=== PATIENT | female | born 1940 | race African-American/Black ===

== ENCOUNTER 2018-05-07 15:16 | Observation (INO) | payer BC ==
--- NOTE | 2018-05-07 15:29 | PDOC ---
History of Present Illness - General Stated Complaint: FALL Time Seen by Provider: 05/07/18 15:29 Past History - Past Medical History Allergies/Adverse Reactions: Allergies Allergy/AdvReac Type Severity Reaction Status Date / Time Fish Containing Products Allergy Intermediate ITCH COUGH Verified 06/22/13 08:27 Home Medications: Ambulatory Orders Albuterol 0.083% Nebulizer Oralia [Ventolin 0.083% Nebulizer Soln -] 1 neb NEB PRN PRN 06/21/13 Albuterol Sulfate Inhaler - [Ventolin HFA Inhaler -] 1 inh IN PRN PRN 06/21/13 Budesonide/Formeterol Fumarate [SYMBICORT 160/4.5mcg -] 2 inh IN BID 06/21/13 Cholecalciferol (Vitamin D3) [Vitamin D] 1,000 mg PO DAILY 06/21/13 Cyanocobalamin Vit B-12 Inj. [Vitamin B12 Injection -] 1,000 mcg IM MONTHLY Gabapentin 300 mg PO PRN PRN 06/21/13 Simvastatin [Zocor -] 20 mg PO DAILY 06/21/13 Tiotropium [place] [Spiriva] 18 mcg IN DAILY 06/21/13 Hydrocodone Bit/Acetaminophen [Lortab 10-500] 1 tab PO TID PRN #20 tablet Anemia: No Asthma: Yes Cancer: No Cardiac Disorders: Yes CVA: No COPD: Yes CHF: Yes Dementia: No Diabetes: Yes (BORDERLINE) GI Disorders: No Disorders: No HTN: No Hypercholesterolemia: Yes Liver Disease: No Seizures: No Thyroid Disease: No - Surgical History Abdominal Surgery: No Appendectomy: No Cardiac Surgery: No Cholecystectomy: No Lung Surgery: No Neurologic Surgery: No Orthopedic Surgery: Yes (FOOT SX LEFT) - Suicide/Smoking/Psychosocial Hx Smoking History: Never smoked Have you smoked in the past 12 months: No Hx Alcohol Use: No Drug/Substance Use Hx: No Substance Use Type: None Hx Substance Use Treatment: No
--- NOTE | 2018-05-07 16:03 | PDOC ---
History of Present Illness - General Chief Complaint: Syncope/Near Syncope Stated Complaint: FALL Time Seen by Provider: 05/07/18 15:29 - History of Present Illness Initial Comments: 05/07/18 16:56 Patient is a 78 year old female with past medical history of HTN, HLD, DM and COPD, BIBEMS after a witnessed fall. Patient reported she was preparing some food in the kitchen, when she suddenly felt dizzy, with the room spinning around her and subsequently fell forward, hitting her head. As per grandson, patient fell forward, hitting the trash cans and had a few moments of unconsciousness, but could not say how long she passed out. Patient remembered waking up, feeling weak, and still on the floor, asking her grandson to get the phone. Patient trying to call 911 but could not seem to get them on the line. She tried to call her son, but could not seem to remember her son's name initially. When she finally did, she told her son what happened and EMS was called. Patient denies headache, fever, chills, nausea, vomiting, chest pain, SOB, palpitations, abdominal pain, diarrhea, constipation, urinary symptoms. Denies dysphagia, dysarthria, diplopia, numbness, tingling, unstable gait. Past History - Past Medical History Allergies/Adverse Reactions: Allergies Allergy/AdvReac Type Severity Reaction Status Date / Time Fish Containing Products Allergy Intermediate ITCH COUGH Verified 05/07/18 16:19 Home Medications: Ambulatory Orders Albuterol 0.083% Nebulizer Oralia [Ventolin 0.083% Nebulizer Soln -] 1 neb NEB PRN PRN 06/21/13 Albuterol Sulfate Inhaler - [Ventolin HFA Inhaler -] 1 inh IN PRN PRN 06/21/13 Budesonide/Formeterol Fumarate [SYMBICORT 160/4.5mcg -] 2 inh IN BID 06/21/13 Cholecalciferol (Vitamin D3) [Vitamin D] 1,000 mg PO DAILY 06/21/13 Cyanocobalamin Vit B-12 Inj. [Vitamin B12 Injection -] 1,000 mcg IM MONTHLY Gabapentin 300 mg PO PRN PRN 06/21/13 Simvastatin [Zocor -] 20 mg PO DAILY 06/21/13 Tiotropium [place] [Spiriva] 18 mcg IN DAILY 06/21/13 Hydrocodone Bit/Acetaminophen [Lortab 10-500] 1 tab PO TID PRN #20 tablet Anemia: No Asthma: Yes Cancer: No Cardiac Disorders: Yes CVA: No COPD: Yes CHF: Yes Dementia: No Diabetes: Yes (BORDERLINE) GI Disorders: No Disorders: No HTN: No Hypercholesterolemia: Yes Liver Disease: No Seizures: No Thyroid Disease: No - Surgical History Abdominal Surgery: No Appendectomy: No Cardiac Surgery: No Cholecystectomy: No Lung Surgery: No Neurologic Surgery: No Orthopedic Surgery: Yes (FOOT SX LEFT) - Suicide/Smoking/Psychosocial Hx Smoking History: Never smoked Have you smoked in the past 12 months: No Hx Alcohol Use: No Drug/Substance Use Hx: No Substance Use Type: None Hx Substance Use Treatment: No *Physical Exam - Physical Exam Comments: 05/07/18 16:56 General: awake, alert, oriented, not in acute distress Head: no bruises, no lacerations HEENT: PERRLA, EOMI, sclerae anicteric, no nasal discharge, non-erythematous oropharynx, dry mucous membranes Neck:soft, supple, trachea midline without thyromegaly Lungs:clear to auscultation bilaterally, good air entry Heart:regular rate and rhythm, normal S1/S2, no m,r,g Abdomen: soft, nontender, nondistended, NABS Ext: +2 pulses, no peripheral edema, no cyanosis, no clubbing Neuro: AAOx4, CN II-XII intact, motor strength 5/5, sensation intact, no dysmetria, no dysdiadochokinesia, normal speech, normal gait ED Treatment Course - LABORATORY CBC & Chemistry Diagram: 05/07/18 16:13 05/07/18 16:13 Medical Decision Making - Medical Decision Making 05/07/18 16:03 Patient is a 78 year old female with past medical history of HTN, HLD, DM and COPD, BIBEMS after a witnessed fall. Syncope DDx include but not limited to TIA/CVA, ACS, UTI, PNA, BPPV CBC, CMP cardiac profile UA CXR EKG Head CT without contrast 05/07/18 17:43 CT - No acute skull fracture. No intracranial hemorrhage. There is no evidence of acute infarction. CXR - no acute intracranial pathology CBC, CMP - wnl UA -wnl Admit for further syncope work-up. *DC/Admit/Observation/Transfer Diagnosis at time of Disposition: Syncope Qualifiers: Syncope type: unspecified Qualified Code(s): R55 - Syncope and collapse - Discharge Dispostion Condition at time of disposition: Stable Decision to Admit order: Yes - Referrals Referrals: My Parada MD [Primary Care Provider] - - Patient Instructions - Post Discharge Activity
[2018-05-07 16:26] LABS: BASO % 0.7 % (0-2.0); EOS % 2.8 % (0-4.5); HEMATOCRIT 37.4 % (32.4-45.2); HEMOGLOBIN 12.5 GM/dL (10.7-15.3); LYMPH % 33.2 % (8-40); MCH 27.7 pg (25.7-33.7); MCHC 33.3 g/dl (32.0-36.0); MEAN CELL VOLUME 83.2 fl (80-96); MONO % 5.9 % (3.8-10.2); NEUT % 57.4 % (42.8-82.8); PLATELET COUNT 323 K/MM3 (134-434); RDW 14.2 % (11.6-15.6); WHITE BLOOD COUNT 6.4 K/mm3 (4.0-10.0)
[2018-05-07 16:36] VITALS: BMI 33.5
[2018-05-07 16:54] LABS: ALK PHOS 84 U/L (45-117); BLOOD UREA NITROGEN 13 mg/dL (7-18); CALCIUM 9.2 mg/dL (8.5-10.1); GLUCOSE,RANDOM 141 mg/dL (74-106)
[2018-05-07 16:55] LABS: ALBUMIN 3.9 g/dl (3.4-5.0); ANION GAP 9 MMOL/L (8-16); BILIRUBIN,TOTAL 0.4 mg/dL (0.2-1); CHLORIDE 107 mmol/L (98-107); CO2 27 mmol/L (21-32); CREATININE 1.2 mg/dL (0.55-1.3); POTASSIUM 3.9 mmol/L (3.5-5.1); SGOT/AST 29 U/L (15-37); SGPT/ALT 49 U/L (13-61); SODIUM 143 mmol/L (136-145)
--- NOTE | 2018-05-07 16:59 | PDOC ---
Attending Attestation - Resident Resident Name: Lauryn Cheng - ED Attending Attestation I have performed the following: I have examined & evaluated the patient, The case was reviewed & discussed with the resident, I agree w/resident's findings & plan, Exceptions are as noted - HPI HPI: 05/07/18 16:46 78 year old female with history of vertigo, anemia, HTN, DM, CAD (recent stress test yesterday demonstrating reversible defect) presents with syncope. The patient reported that she was awake and in her usual state of health. Earlier today, she was in the kitchen standing and scratching a lottery ticket. She suddenly became dizzy and had a syncopal episode. She found herself on the floor. Believed that she had a brief LOC. No headache or chest pain. Pt attempted to call her son but could not remember name, could not remember how to use the phone. Unsure if she hit her head. Pt recently had a stress test yesterday (nuclear); results are in the system. Pt was able to contact son and son called 911. Pt is now back to baseline. Denies numbness, weakness, dysarthria, diplopia, gait disturbances. Denies recent illnesses, fevers, chills, cough, vomiting, diarrhea, dysuria. - Physicial Exam PE: 05/07/18 17:00 ADULT EXAM GENERAL: Awake, alert, and fully oriented, in no acute distress HEAD: No signs of trauma EYES: EOMI, sclera anicteric, conjunctiva clear ENT: Auricles normal inspection, hearing grossly normal, nares patent, . Moist mucosa NECK: Normal ROM, supple, LUNGS: Breath sounds equal, clear to auscultation bilaterally. No wheezes, and no crackles HEART: Regular rate and rhythm, normal S1 and S2, no murmurs, rubs or gallops ABDOMEN: Soft, nontender, No guarding, no rebound. No masses EXTREMITIES: Normal range of motion, no edema. No clubbing or cyanosis. No cords, erythema, or tenderness NEUROLOGICAL: Cranial nerves II through XII intact. Normal speech, no dysmetria , no dysarthria. rapid alternating intact. heel to kruse normal. 5/5 strength intact upper and lower extremities. Sensation intact throughout. No pronator drift. SKIN: Warm, Dry, normal turgor, no rashes or lesions noted. - Medical Decision Making 05/07/18 17:00 Vital Signs Temp Pulse Resp BP Pulse Ox 97.8 F 99 H 18 162/95 97 05/07/18 15:26 05/07/18 15:26 05/07/18 15:26 05/07/18 15:26 05/07/18 15:26 78 year old female with syncope. Word finding difficulty concerning for stroke. CT head. However, not candidate for TPA given very mild stroke like symptoms now resolved. Must rule out TIA/stroke. R/o cardiac etiology. Chest xray, labs. Admit. 05/07/18 17:39 CT head reviewed, no acute findings. Chest xray reviewed. No acute findings. CBC, BMP 05/07/18 16:13 05/07/18 16:13 CMP Sodium 143 mmol/L (136-145) 05/07/18 16:13 Potassium 3.9 mmol/L (3.5-5.1) 05/07/18 16:13 Chloride 107 mmol/L (98-107) 05/07/18 16:13 Carbon Dioxide 27 mmol/L (21-32) 05/07/18 16:13 Anion Gap 9 MMOL/L (8-16) 05/07/18 16:13 BUN 13 mg/dL (7-18) 05/07/18 16:13 Creatinine 1.2 mg/dL (0.55-1.3) 05/07/18 16:13 Creat Clearance w eGFR 43.45 (>60) 05/07/18 16:13 POC Glucometer 172.82449 UNITS (80-120) 05/07/18 15:43 Random Glucose 141 mg/dL (74-106) H 05/07/18 16:13 Calcium 9.2 mg/dL (8.5-10.1) 05/07/18 16:13 Total Bilirubin 0.4 mg/dL (0.2-1) 05/07/18 16:13 AST 29 U/L (15-37) 05/07/18 16:13 ALT 49 U/L (13-61) 05/07/18 16:13 Alkaline Phosphatase 84 U/L (45-117) 05/07/18 16:13 Creatine Kinase 222 IU/L (26-192) H 05/07/18 16:19 Troponin I < 0.02 ng/ml (0.00-0.05) 05/07/18 16:19 Total Protein 7.0 g/dl (6.4-8.2) 05/07/18 16:13 Albumin 3.9 g/dl (3.4-5.0) 05/07/18 16:13 Heart Score/ECG Review #1 ECG reviewed & interpreted by me at: 15:55 05/07/18 16:46 NSR 94, no std/patricia, normal axis, normal intervals, T wave flat III, QTC 447 msec , no brugada, no HOCM, no WPW NIH Stroke Scale - Last Known Well Date/Time & Onset Date Last Known Well: 05/07/18 - Initial Evaluation Level of consciousness: Alert Ask patient the month and their age: Answers both correctly Ask patient to open & close eyes; make fist and let go: Obeys both correctly Best gaze (horizontal eye movement): Normal Visual field testing: No visual field loss Facial paresis (Show teeth/raise eyebrows/close eyes tight): Normal symmetrical movement Motor Function: Left Arm: Normal Motor Function: Right Arm: Normal (extends arm 90 (or 45) degrees for 10 seconds without drift Motor Function: Left Leg: Normal (extends leg 30 degrees for 5 seconds without drift) Motor Function: Right Leg: Normal (extends leg 30 degrees for 5 seconds without drift) Limb Ataxia: No ataxia Sensory(Use pinprick test arms,legs,trunk,face/side to side): Normal Best language (Describe picture, name items, read sentences): No Aphasia Dysarthria (read several words): Normal articulation Extinction and Inattention: No abnormality - Total Score NIH Stroke Scale Score: 0
[2018-05-07 17:14] LABS: URINE APPEARANCE CLEAR; URINE BILIRUBIN NEGATIVE (<2.0 mg/dL); URINE COLOR LTYELLOW; URINE GLUCOSE (UA) NEGATIVE (NEGATIVE); URINE KETONE NEGATIVE (NEGATIVE); URINE LEUK ESTERASE NEGATIVE (NEGATIVE); URINE NITRITE NEGATIVE (NEGATIVE); URINE PROTEIN NEGATIVE (NEGATIVE); URINE UROBILINOGEN NEGATIVE mg/dL (0.2-1.0)
--- NOTE | 2018-05-07 20:23 | HP ---
CHIEF COMPLAINT: Near syncopal episode PCP: Dr. Paraad Data Clerk: Dr. Richard Parada at [facility] HISTORY OF PRESENT ILLNESS: 78 year old female with a PMH significant for HTN, HLD, DM2, vertigo, B12 deficiency, presented to the ED after a witnessed syncopal episode where she fell to her knees. In the afternoon, she was in the kitchen and she felt a spinning sensation, she fell to her knees then her head hit the floor. She think she may have been unconscious for about one second. The incident was witnessed by her grandson. Denies recent fever, seizures, prior syncopal episodes, SOB, congestion, chest pain, palpitations, n/v/d. Upon admission to the ED, Recent Travel: No PAST MEDICAL HISTORY: Borderline DM HTN HLD Asthma PAST SURGICAL HISTORY: Tubal ligation Social History: Smoking: Never Alcohol: Rarely Drugs: Denies Family History: Father: [place], age 56 Mother: Kidney, bladder cancer, age 67 Allergies Fish Containing Products Allergy (Intermediate, Verified 05/07/18 16:19) ITCH COUGH HOME MEDICATIONS: Home Medications Medication Instructions Recorded Albuterol 0.083% Nebulizer Oralia 1 neb NEB PRN PRN 06/21/13 [Ventolin 0.083% Nebulizer Soln -] Albuterol Sulfate Inhaler - 1 inh IN PRN PRN 06/21/13 [Ventolin HFA Inhaler -] Budesonide/Formeterol Fumarate 2 inh IN BID 06/21/13 [SYMBICORT 160/4.5mcg -] Cholecalciferol (Vitamin D3) 1,000 mg PO DAILY 06/21/13 [Vitamin D] Cyanocobalamin Vit B-12 Inj. 1,000 mcg IM MONTHLY 06/21/13 [Vitamin B12 Injection -] Gabapentin 300 mg PO PRN PRN 06/21/13 Simvastatin [Zocor -] 20 mg PO DAILY 06/21/13 Tiotropium [place] [Spiriva] 18 mcg IN DAILY 06/21/13 Hydrocodone Bit/Acetaminophen 1 tab PO TID PRN #20 tablet 06/22/13 [Lortab 10-500] REVIEW OF SYSTEMS CONSTITUTIONAL: (+) occasional fatigue Absent: fever, chills, diaphoresis, generalized weakness, malaise, loss of appetite, weight change HEENT: Absent: rhinorrhea, nasal congestion, throat pain, throat swelling, difficulty swallowing, mouth swelling, ear pain, eye pain, visual changes CARDIOVASCULAR: (+) lightheadedness Absent: chest pain, syncope, palpitations, irregular heart rate, lightheadedness , peripheral edema RESPIRATORY: (+) chronic cough Absent: shortness of breath, dyspnea with exertion, orthopnea, wheezing, stridor , hemoptysis GASTROINTESTINAL: Absent: abdominal pain, abdominal distension, nausea, vomiting, diarrhea, constipation, melena, hematochezia GENITOURINARY: Absent: dysuria, frequency, urgency, hesitancy, hematuria, flank pain, genital pain MUSCULOSKELETAL: Absent: myalgia, arthralgia, joint swelling, back pain, neck pain SKIN: Absent: rash, itching, pallor HEMATOLOGIC/IMMUNOLOGIC: Absent: easy bleeding, easy bruising, lymphadenopathy, frequent infections ENDOCRINE: Absent: unexplained weight gain, unexplained weight loss, heat intolerance, cold intolerance NEUROLOGIC: Absent: headache, focal weakness or paresthesias, dizziness, unsteady gait, seizure, mental status changes, bladder or bowel incontinence PSYCHIATRIC: Absent: anxiety, depression, suicidal or homicidal ideation, hallucinations. PHYSICAL EXAMINATION Vital Signs - 24 hr 05/07/18 05/07/18 15:26 18:05 Temperature 97.8 F Pulse Rate 99 H Pulse Rate [ 69 Left Radial] Respiratory 18 18 Rate Blood Pressure 162/95 Blood Pressure 152/82 [Right Arm] O2 Sat by Pulse 97 100 Oximetry (%) GENERAL: Awake, alert, and fully oriented, in no acute distress. HEAD: Normal with no signs of trauma. EYES: Xanthelasma b/l, pupils equal, round and reactive to light, extraocular movements intact, sclera anicteric, conjunctiva clear. No lid lag. EARS, NOSE, THROAT: Ears normal, nares patent, oropharynx clear without exudates. Moist mucous membranes. NECK: Normal range of motion, supple without lymphadenopathy, JVD, or masses. LUNGS: Breath sounds equal, clear to auscultation bilaterally. No wheezes, and no crackles. No accessory muscle use. HEART: Regular rate and rhythm, normal S1 and S2 without murmur, rub or gallop. ABDOMEN: Obese, soft, nontender, not distended, normoactive bowel sounds, no guarding, no rebound, no masses. No hepatomegaly or splenomegaly. MUSCULOSKELETAL: Normal range of motion at all joints. No bony deformities or tenderness. No CVA tenderness. UPPER EXTREMITIES: 2+ pulses, warm, well-perfused. No cyanosis. No clubbing. No peripheral edema. LOWER EXTREMITIES: 2+ pulses, warm, well-perfused. No calf tenderness. No peripheral edema. NEUROLOGICAL: No facial droop, tongue midiline, normal speech. Normal gait. PSYCHIATRIC: Cooperative. Good eye contact. Appropriate mood and affect. SKIN: Warm, dry, normal turgor, no rashes or lesions noted, normal capillary refill. Laboratory Results - last 24 hr 05/07/18 05/07/18 05/07/18 15:43 16:13 16:13 WBC 6.4 RBC 4.50 Hgb 12.5 Hct 37.4 MCV 83.2 MCH 27.7 MCHC 33.3 RDW 14.2 Plt Count 323 MPV 8.0 Absolute Neuts (auto) 3.7 Neutrophils % 57.4 Lymphocytes % 33.2 Monocytes % 5.9 Eosinophils % 2.8 Basophils % 0.7 Nucleated RBC % 0 Sodium 143 Potassium 3.9 Chloride 107 Carbon Dioxide 27 Anion Gap 9 BUN 13 Creatinine 1.2 Creat Clearance w eGFR 43.45 POC Glucometer 172.91215 Random Glucose 141 H Calcium 9.2 Total Bilirubin 0.4 AST 29 ALT 49 Alkaline Phosphatase 84 Creatine Kinase Creatine Kinase Index CK-MB (CK-2) Troponin I Total Protein 7.0 Albumin 3.9 Urine Color Urine Appearance Urine pH Ur Specific [place] Urine Protein Urine Glucose (UA) Urine Ketones Urine Blood Urine Nitrite Urine Bilirubin Urine Urobilinogen Ur Leukocyte Esterase 05/07/18 05/07/18 16:19 16:36 WBC RBC Hgb Hct MCV MCH MCHC RDW Plt Count MPV Absolute Neuts (auto) Neutrophils % Lymphocytes % Monocytes % Eosinophils % Basophils % Nucleated RBC % Sodium Potassium Chloride Carbon Dioxide Anion Gap BUN Creatinine Creat Clearance w eGFR POC Glucometer Random Glucose Calcium Total Bilirubin AST ALT Alkaline Phosphatase Creatine Kinase 222 H Creatine Kinase Index 0.9 CK-MB (CK-2) 2.2 Troponin I < 0.02 Total Protein Albumin Urine Color L[place] Urine Appearance Clear Urine pH 6.0 Ur Specific [place] 1.012 Urine Protein Negative Urine Glucose (UA) Negative Urine Ketones Negative Urine Blood Negative Urine Nitrite Negative Urine Bilirubin Negative Urine Urobilinogen Negative Ur Leukocyte Esterase Negative CT - No acute skull fracture. No intracranial hemorrhage. There is no evidence of acute infarction. CXR - no acute intracranial pathology ASSESSMENT/PLAN: 78 year old female with a PMH significant for HTN, HLD, DM2, vertigo, B12 deficiency, presented to the ED after a witnessed syncopal episode where she fell to her knees Near syncopal episode - CT of the head negative - Carotid US ordered - Lipid panel ordered - Neuro and cardiac consult ordered CAD - Nuclear stress test from 05/04/18 showed reversible defect - Lipid panel ordered - Followed by Dr. Richard Parada at [facility] HTN HLD COPD - Continue Spiriva and Breo - Pro Air HFA PRN - Mucinex Vitamin B12 deficiency - Monthly injections of cyanocobalamin - B12 level ordered Supplement - Vitamin D and vitamin C Prophylaxis - DVT: OOB, ambulation FEN - PO intake adequate - Replete as needed - Low sodium diet Disp: Patient requires overnight observation. Visit type - Emergency Visit Emergency Visit: Yes ED Registration Date: 05/07/18 Care time: The patient presented to the Emergency Department on the above date and was hospitalized for further evaluation of their emergent condition. - New Patient This patient is new to me today: Yes Date on this admission: 05/08/18 - Critical Care Critical Care patient: No
[2018-05-08] MEDS ORDERED: MECLIZINE HCL 25 MG TABLET (FP) ONE (05:58)
[2018-05-08 06:02] LABS: BASO % 0.8 % (0-2.0); EOS % 3.6 % (0-4.5); HEMATOCRIT 39.4 % (32.4-45.2); HEMOGLOBIN 12.3 GM/dL (10.7-15.3); LYMPH % 43.1 % (8-40); MCH 26.2 pg (25.7-33.7); MCHC 31.2 g/dl (32.0-36.0); MEAN CELL VOLUME 83.8 fl (80-96); MEAN PLT VOLUME 7.5 fl (7.5-11.1); MONO % 8.1 % (3.8-10.2); NEUT % 44.4 % (42.8-82.8); PLATELET COUNT 328 K/MM3 (134-434); RDW 14.2 % (11.6-15.6); WHITE BLOOD COUNT 6.8 K/mm3 (4.0-10.0)
[2018-05-08] MEDS: MECLIZINE HCL 25 MG TABLET (FP) PO SCH ×3 (06:12→23:11)
[2018-05-08 06:33] LABS: CHOLESTEROL 163 mg/dL (50-200); HDL CHOLESTEROL 45 mg/dL (40-60); TRIGLYCERIDES 117 mg/dL (0-150)
[2018-05-08 06:36] LABS: ALBUMIN 3.8 g/dl (3.4-5.0); ALK PHOS 77 U/L (45-117); ANION GAP 8 MMOL/L (8-16); BILIRUBIN,TOTAL 0.4 mg/dL (0.2-1); BLOOD UREA NITROGEN 13 mg/dL (7-18); CALCIUM 9.4 mg/dL (8.5-10.1); CHLORIDE 108 mmol/L (98-107); CO2 27 mmol/L (21-32); CREATININE 1.1 mg/dL (0.55-1.3); GLUCOSE,RANDOM 99 mg/dL (74-106); POTASSIUM 4.3 mmol/L (3.5-5.1); SGOT/AST 22 U/L (15-37); SGPT/ALT 44 U/L (13-61); SODIUM 143 mmol/L (136-145); TOT PROT 6.9 g/dl (6.4-8.2)
--- NOTE | 2018-05-08 09:02 | PN ---
Progress Note (short form) - Note Progress Note: pt states she sees [facility] in dr mi's office. [facility] (dr dela cruz et al) covers his pts in hospital. dr dela cruz informed, they will see pt.
--- NOTE | 2018-05-08 09:25 | EKG ---
Test Reason : Blood Pressure : / mmHG Vent. Rate : 094 BPM Atrial Rate : 094 BPM P-R Int : 186 ms QRS Dur : 086 ms QT Int : 358 ms P-R-T Axes : 064 001 018 degrees QTc Int : 447 ms NORMAL SINUS RHYTHM NORMAL ECG WHEN COMPARED WITH ECG OF 18-APR-2003 09:44, QT HAS LENGTHENED Confirmed by IGLESIA ROACH MD ([id number]) on 05/08/2018 9:25:17 AM Referred By: Confirmed By:IGLESIA ROACH MD
[2018-05-08] MEDS: amLODIPine BESYLATE 5 MG TABLET (FP) PO SCH (10:34)
[2018-05-08] MEDS: PANTOPRAZOLE 40 MG TABLET (FP) PO SCH (10:34)
--- NOTE | 2018-05-08 11:06 | CON.NEURO ---
Consult - Alcohol/Substance Use Hx Alcohol Use: No - Smoking History Smoking history: Never smoked Have you smoked in the past 12 months: No Home Medications - Allergies Allergies/Adverse Reactions: Allergies Allergy/AdvReac Type Severity Reaction Status Date / Time Fish Containing Products Allergy Intermediate ITCH COUGH Verified 05/07/18 16:19 - Home Medications Home Medications: Ambulatory Orders Amlodipine Besylate 5 mg PO DAILY 05/07/18 Meclizine HCl 25 mg PO TID 05/07/18 Pantoprazole Sodium 40 mg PO DAILY 05/07/18 Rosuvastatin [Crestor -] 20 mg PO DAILY 05/07/18 Tiotropium [place] [Spiriva] 18 mcg IH DAILY 05/07/18 Fluticasone/Vilanterol [Breo Ellipta 200-25 Mcg INH] 1 each IH DAILY 05/08/18 Physical Exam-Neuro Vital Signs: Vital Signs Temperature 97.8 F 05/08/18 09:50 Pulse Rate 85 05/08/18 09:50 Respiratory Rate 16 05/08/18 09:50 Blood Pressure 135/88 05/08/18 09:50 O2 Sat by Pulse Oximetry (%) 97 05/08/18 09:50 Labs: CBC, BMP 05/08/18 05:10 05/08/18 05:10 Assessment/Plan CC Episode of passing out and? confusion HPI 78 year old female history of HTN, HLD, DM, Vertigo . She had episode of vertigo sensation on may 07 and she fall and hit her neck to floor and she was out for sometime, not sure. She regained consiousness and than her grand son ( 10 year old) gave her phone to call 911, and ambulance arrives. It took her a while to figure, there was no one to witness if she had seizure. Patient complaining of left shoulder and nape area pain. NO arm or leg weakness. She never had stroke or mi before, she denies smoking . PAST MEDICAL HISTORY: Borderline DM HTN HLD Asthma PAST SURGICAL HISTORY: Tubal ligation Social History: Smoking: Never Alcohol: Rarely Drugs: Denies Family History: Father: [place], age 56 Mother: Kidney, bladder cancer, age 67 Allergies Fish Containing Products Allergy (Intermediate, Verified 05/07/18 16:19) ITCH COUGH HOME MEDICATIONS: Home Medications Medication Instructions Recorded Albuterol 0.083% Nebulizer Oralia 1 neb NEB PRN PRN 06/21/13 [Ventolin 0.083% Nebulizer Soln -] Albuterol Sulfate Inhaler - 1 inh IN PRN PRN 06/21/13 [Ventolin HFA Inhaler -] Budesonide/Formeterol Fumarate 2 inh IN BID 06/21/13 [SYMBICORT 160/4.5mcg -] Cholecalciferol (Vitamin D3) 1,000 mg PO DAILY 06/21/13 [Vitamin D] Cyanocobalamin Vit B-12 Inj. 1,000 mcg IM MONTHLY 06/21/13 [Vitamin B12 Injection -] Gabapentin 300 mg PO PRN PRN 06/21/13 Simvastatin [Zocor -] 20 mg PO DAILY 06/21/13 Tiotropium [place] [Spiriva] 18 mcg IN DAILY 06/21/13 Hydrocodone Bit/Acetaminophen 1 tab PO TID PRN #20 tablet 06/22/13 [Lortab 10-500] ROS reviewed in chart NEUROLOGICAL EXAMIANTION Alert oriented x 3, speech is normal EOMI, pupils reactive, no face asymmetry moving all extremity 5/5 reflex are symmetrical slightly diminished sensation is normal ct head is normal Assessment/Plan Episode of passing out with brief confusion, in absence of any clearcut witness, I suspect possibility of seizure cant rule out , syncope work up is in progress. Plan- suggest to do mri of brain with contrast and eeg - hold AED - Continue syncope work up as per primary -will continue to follow Thanking you so much Isabel Dukes MD
--- NOTE | 2018-05-08 13:18 | PN ---
Progress Note, Physician - Current Medication List Current Medications: Active Medications Amlodipine Besylate (Norvasc -) 5 mg PO DAILY [facility] Last Admin: 05/08/18 10:34 Dose: 5 mg Meclizine HCl (Antivert -) 25 mg PO TID [facility] Last Admin: 05/08/18 06:12 Dose: 25 mg Pantoprazole Sodium (Protonix -) 40 mg PO DAILY [facility] Last Admin: 05/08/18 10:34 Dose: 40 mg Rosuvastatin Calcium (Crestor -) 20 mg PO [facility] - Objective Vital Signs: Vital Signs Temperature 97.8 F 05/08/18 09:50 Pulse Rate 85 05/08/18 09:50 Respiratory Rate 16 05/08/18 09:50 Blood Pressure 135/88 05/08/18 09:50 O2 Sat by Pulse Oximetry (%) 97 05/08/18 09:50 Labs: CBC, BMP 05/08/18 05:10 05/08/18 05:10 Problem List - Problems (1) Syncope Assessment/Plan: - CT of the head negative - MRI - Carotid US ordered - Lipid panel noted - Neuro noted Code(s): R55 - SYNCOPE AND COLLAPSE Qualifiers: Syncope type: unspecified Qualified Code(s): R55 - Syncope and collapse (2) HTN (hypertension) Code(s): I10 - ESSENTIAL (PRIMARY) HYPERTENSION (3) COPD (chronic obstructive pulmonary disease) Assessment/Plan: - Continue Spiriva and Breo - Pro Air HFA PRN - Mucinex Code(s): J44.9 - CHRONIC OBSTRUCTIVE PULMONARY DISEASE, UNSPECIFIED (4) CAD (coronary artery disease) Assessment/Plan: - Nuclear stress test from 05/04/18 showed reversible defect - Lipid panel noted - Followed by Dr. Richard Parada at [facility] Code(s): I25.10 - ATHSCL HEART DISEASE OF [place] CORONARY ARTERY W/O ANG PCTRS
--- NOTE | 2018-05-08 16:03 | CON.CARD ---
Consult Consult Specialty:: Cardiology Reason for Consultation:: Syncope - History of Present Illness History of Present Illness: 78 year old female with COPD, HTN, HLD, DM2, vertigo, B12 deficiency, presented to the ED with syncope. She felt a sudden spinning/dizziness sensation , she fell to her knees then her head hit the floor. She think she may have been unconscious for about one second. Denies recent fever, seizures, prior syncopal episodes, SOB, congestion, chest pain, palpitations, n/v/d. A recent stress test showed preserved EF and small region of posterolateral ischemia. She was recently started on Amlodipine - History Source History Provided By: Patient Limitations to Obtaining History: No Limitations - Past Medical History Cardio/Vascular: Yes: CAD, HTN - Alcohol/Substance Use Hx Alcohol Use: No - Smoking History Smoking history: Never smoked Have you smoked in the past 12 months: No Home Medications - Allergies Allergies/Adverse Reactions: Allergies Allergy/AdvReac Type Severity Reaction Status Date / Time Fish Containing Products Allergy Intermediate ITCH COUGH Verified 05/07/18 16:19 - Home Medications Home Medications: Ambulatory Orders Amlodipine Besylate 5 mg PO DAILY 05/07/18 Meclizine HCl 25 mg PO TID 05/07/18 Pantoprazole Sodium 40 mg PO DAILY 05/07/18 Rosuvastatin [Crestor -] 20 mg PO DAILY 05/07/18 Tiotropium [place] [Spiriva] 18 mcg IH DAILY 05/07/18 Fluticasone/Vilanterol [Breo Ellipta 200-25 Mcg INH] 1 each IH DAILY 05/08/18 Review of Systems - Review of Systems Constitutional: reports: No Symptoms Eyes: reports: No Symptoms HENT: reports: No Symptoms Neck: reports: No Symptoms Cardiovascular: denies: Chest Pain, Edema, Palpitations, Shortness of Breath Respiratory: denies: Cough, Exercise Intolerance, Snoring, SOB Gastrointestinal: reports: No Symptoms Vital Signs: Vital Signs Temperature 97.8 F 05/08/18 14:00 Pulse Rate 98 H 05/08/18 14:00 Respiratory Rate 20 05/08/18 14:00 Blood Pressure 126/84 05/08/18 14:00 O2 Sat by Pulse Oximetry (%) 97 05/08/18 09:50 Constitutional: Yes: Well Nourished, No Distress Eyes: Yes: Conjunctiva Clear, EOM Intact HENT: Yes: Atraumatic, Normocephalic Neck: Yes: Supple, Trachea Midline Respiratory: Yes: Regular, CTA Bilaterally Gastrointestinal: Yes: Normal Bowel Sounds, Soft Heart Sounds: Yes: S1, S2 Murmur: No: Systolic Murmur, Diastolic Murmur Musculoskeletal: Yes: WNL Edema: No Peripheral Pulses WNL: No - Other Data Labs, Other Data: CBC, BMP 05/08/18 05:10 05/08/18 05:10 Troponin, BNP 05/07/18 05/08/18 16:19 05:10 Troponin I < 0.02 < 0.02 Troponin, BNP 05/07/18 05/08/18 16:19 05:10 Troponin I < 0.02 < 0.[address] T changes. Ejection Fraction %: LVEF > or = 40 % Problem List - Problems (1) Syncope Code(s): R55 - SYNCOPE AND COLLAPSE Qualifiers: Syncope type: unspecified Qualified Code(s): R55 - Syncope and collapse Assessment/Plan 78 year old female with COPD, HTN, HLD, DM2, vertigo, B12 deficiency, presented to the ED with syncope. She felt a sudden spinning/dizziness sensation , she fell to her knees then her head hit the floor. She think she may have been unconscious for about one second. Denies recent fever, seizures, prior syncopal episodes, SOB, congestion, chest pain, palpitations, n/v/d. A recent stress test showed preserved EF and small region of posterolateral ischemia. No history of LV dysfunction or valvular pathology on prior echo She was recently started on Amlodipine Possible vagal syncope.. Keep off Amlodipine check orthostatic BP Monitor on telem for 24 hours.
[2018-05-08] MEDS ORDERED: ROSUVASTATIN CA 20 MG TABLET (FP) PO SCH (22:00)
[2018-05-09] MEDS: MECLIZINE HCL 25 MG TABLET (FP) PO SCH ×2 (06:44→15:35)
--- NOTE | 2018-05-09 09:29 | PN ---
Progress Note (short form) - Note Progress Note: HPI 78 year old female history of HTN, HLD, DM, Vertigo . She had episode of vertigo sensation on may 07 and she fall and hit her neck to floor and she was out for sometime, not sure. She regained consiousness and than her grand son ( 10 year old) gave her phone to call 911, and ambulance arrives. It took her a while to figure, there was no one to witness if she had seizure. Patient complaining of left shoulder and nape area pain. NO arm or leg weakness. She never had stroke or mi before, she denies smoking . no new symptoms, complain of pain in left side of neck , no focal neurological weakness. NEUROLOGICAL EXAMIANTION Alert oriented x 3, speech is normal EOMI, pupils reactive, no face asymmetry moving all extremity 5/5 reflex are symmetrical slightly diminished sensation is normal ct head is normal mri of brain with contrast is normal except left ? temporal sclerosis , but no enchacing area Assessment/Plan Episode of passing out with brief confusion, in absence of any clearcut witness, I suspect possibility of seizure cant rule out , syncope work up is in progress. Plan- mri report reviewed and eeg is pending - hold AED - Continue syncope work up as per primary -will continue to follow Thanking you so much Isabel Dukes MD
[2018-05-09 09:58] VITALS: TEMP 98
[2018-05-09] MEDS: PANTOPRAZOLE 40 MG TABLET (FP) PO SCH (10:49)
[2018-05-09] MEDS: amLODIPine BESYLATE 5 MG TABLET (FP) PO SCH (10:49)
[2018-05-09 11:01] VITALS: BP 126/74; PULSE 90
[2018-05-09] MEDS ORDERED: amLODIPine BESYLATE 2.5 MG TABLET (FP) PO SCH (11:22)
--- NOTE | 2018-05-09 11:25 | DS ---
Physical Examination Vital Signs: Vital Signs Temperature 98.0 F 05/09/18 09:56 Pulse Rate 90 05/09/18 10:59 Respiratory Rate 16 05/09/18 09:57 Blood Pressure 126/74 05/09/18 10:59 O2 Sat by Pulse Oximetry (%) 97 05/09/18 09:57 Constitutional: Yes: No Distress Eyes: Yes: WNL HENT: Yes: WNL Neck: Yes: WNL Cardiovascular: Yes: WNL Respiratory: Yes: WNL Gastrointestinal: Yes: WNL Renal/: Yes: WNL Musculoskeletal: Yes: WNL Extremities: Yes: WNL Edema: No Peripheral Pulses WNL: Yes Integumentary: Yes: WNL Wound/Incision: Yes: Clean/Dry Neurological: Yes: WNL ...Motor Strength: WNL Psychiatric: Yes: WNL Labs: CBC, BMP 05/08/18 05:10 05/08/18 05:10 Discharge Summary Reason For Visit: SYNCOPE Current Active Problems CAD (coronary artery disease) (Acute) COPD (chronic obstructive pulmonary disease) (Acute) HTN (hypertension) (Acute) Syncope (Acute) Procedures: Principal: MRI BRAIN Hospital Course: AWAITING EEG RESULTS, NEUROLOGY CLEARANCE.. MRI BRAIN NO ACUTE CHANGES, REDUCING NORVASC TO 2.5MG DAILY, F/U WITH PMD DR KILGORE, NEUROLOGY OUTPATIENT Condition: Stable - Instructions Diet, Activity, Other Instructions: LOW SALT DIET SEE DR KILGORE IN 2-3 DAYS Referrals: My Kilgore MD [Primary Care Provider] - Disposition: VNS/HOME HEALTH CARE - Home Medications Comprehensive Discharge Medication List: Ambulatory Orders Meclizine HCl 25 mg PO TID 05/07/18 Pantoprazole Sodium 40 mg PO DAILY 05/07/18 Rosuvastatin [Crestor -] 20 mg PO DAILY 05/07/18 Tiotropium [place] [Spiriva] 18 mcg IH DAILY 05/07/18 Fluticasone/Vilanterol [Breo Ellipta 200-25 Mcg INH] 1 each IH DAILY 05/08/18 Amlodipine Besylate [Norvasc -] 2.5 mg PO DAILY tablet 05/09/18 Amlodipine Besylate [Norvasc -] 5 mg PO DAILY tablet 05/09/18
--- NOTE | 2018-05-09 13:54 | ECHO ---
Name: FRANK DELGADO Exam:Adult Echocardiogram Study Date: 05/09/2018 11:28 AM Age: 78 yrs Reason For Study: SYNCOPE Height: 67 in Weight: 214 lb BSA: 2.1 m2 MMode/2D Measurements & Calculations IVSd: 0.99 cm Ao root diam: 3.0 cm LVIDd: 4.2 cm LA dimension: 3.2 cm LVIDs: 2.5 cm LVPWd: 0.94 cm LVPWs: 1.4 cm EDV(Teich): 80.4 ml ESV(Teich): 23.0 ml Doppler Measurements & Calculations MV E max [place]ton: 40.5 cm/sec Ao V2 max: 115.8 cm/sec MV A max [place]: 83.4 cm/sec Ao max P.4 mmHg MV E/A: 0.49 MV dec time: 0.17 sec LV V1 max P.4 mmHg PA V2 max: 97.1 cm/sec LV V1 max: 77.5 cm/sec PA max P.8 mmHg Med Peak E' [place]: 5.8 cm/sec Med E/e': 7.0 Lat Peak E' [place]: 6.8 cm/sec Lat E/e': 6.0 Procedure A complete two-dimensional transthoracic echocardiogram was performed (2D, M-mode, Doppler and color flow Doppler). Technically limited study. Left Ventricle The left ventricle is normal in size. Left ventricular systolic function is normal. Ejection Fraction = 60- 65%. TDI reveals mildly impaired relaxation with normal filling pressure (E/E' 7). No regional wall m otion abnormalities noted. Right Ventricle The right ventricle is normal size. The right ventricular systolic function is normal. RV systolic TD I is 11 cm/s. Atria The left atrial size is normal. Right atrial size is normal. Mitral Valve There is mild mitral annular calcification. There is no mitral regurgitation noted. Tricuspid Valve The tricuspid valve is normal in structure and function. There is mild tricuspid regurgitation. Aortic Valve The aortic valve is normal in structure and function. No aortic regurgitation is present. Pulmonic Valve The pulmonic valve is not well visualized. Great Vessels The aortic root is normal size. Pericardium/Pleura There is no pericardial effusion. Interpretation Summary The left ventricle is normal in size. Left ventricular systolic function is normal. No regional wall motion abnormalities noted. Ejection Fraction = 60-65%. TDI reveals mildly impaired relaxation with normal filling pressure (E/E' 7) The right ventricular systolic function is normal. The left atrial size is normal. Right atrial size is normal. There is mild mitral annular calcification. There is mild tricuspid regurgitation. There is no pericardial effusion. Previous study is not available for comparison Winston Tejada MD 05/09/2018 01:54 PM
--- NOTE | 2018-05-09 14:45 | PN ---
Progress Note, Physician History of Present Illness: seen and examined today in [facility]. No overnight events. no new complaints. ambulatory in the room without symptoms. - Current Medication List Current Medications: Active Medications Amlodipine Besylate (Norvasc -) 2.5 mg PO DAILY [facility] Meclizine HCl (Antivert -) 25 mg PO TID [facility] Last Admin: 05/09/18 06:44 Dose: 25 mg Pantoprazole Sodium (Protonix -) 40 mg PO DAILY [facility] Last Admin: 05/09/18 10:49 Dose: 40 mg Rosuvastatin Cal[place] (Crestor -) 20 mg PO HS [facility] Last Admin: 05/08/18 23:08 Dose: Not Given - Objective Vital Signs: Vital Signs Temperature 98.0 F 05/09/18 09:56 Pulse Rate 90 05/09/18 10:59 Respiratory Rate 16 05/09/18 09:57 Blood Pressure 126/74 05/09/18 10:59 O2 Sat by Pulse Oximetry (%) 97 05/09/18 09:57 Constitutional: Yes: No Distress, Calm Eyes: Yes: Conjunctiva Clear, EOM Intact, PERRL HENT: Yes: Atraumatic, Pharyngeal Erythema Neck: Yes: Supple, Trachea Midline Cardiovascular: Yes: Regular Rate and Rhythm, S1, S2. No: Bradycardia, Tachycardia, Pulse Irregular, Bruit, JVD, Gallop, Murmur, Rub, S3, S4, Varicosities Respiratory: Yes: Regular, CTA Bilaterally. No: Rales, Rhonchi, Wheezes Gastrointestinal: Yes: Normal Bowel Sounds, Soft. No: Distention, Tenderness Extremities: Yes: WNL Edema: No Peripheral Pulses WNL: Yes Peripheral Pulses: Left Doralis Pedis: 2+, Right Dorsalis Pedis: 2+ Neurological: Yes: Alert, Oriented Psychiatric: Yes: Alert, Oriented Labs: CBC, BMP 05/08/18 05:10 05/08/18 05:10 - ....Imaging Chest X-ray: Report Reviewed, Image Reviewed EKG: Report Reviewed, Image Reviewed Other: Report Reviewed, Image Reviewed (tele-nsr, no sig arrhythmias) Assessment/Plan 78 year old female with COPD, HTN, HLD, DM2, vertigo, B12 deficiency, presented to the ED with syncope. She felt a sudden spinning/dizziness sensation , she fell to her knees then her head hit the floor. She think she may have been unconscious for about one second. Denies recent fever, seizures, prior syncopal episodes, SOB, congestion, chest pain, palpitations, n/v/d. A recent stress test showed preserved EF and small region of posterolateral ischemia. No history of LV dysfunction or valvular pathology on prior echo She was recently started on Amlodipine Possible vagal syncope.. Can dc Amlodipine Orthostatic BP showed significant decrease in systolic BP with standing, recc adequate hydration, slow rise from a seated/lying position, safety precautions. Echo today showed normal LV systolic function, no sig valvular abnl No sig arrhythmias on tele overnight No additional inpatient cardiac work up needed at this time. Please call with any further questions.
== END 2018-05-09 17:22 | disposition home health service (06) ==
LOC: JER 15:16 → JERBED 18:04 → UNDOADMIN 18:45 → JERBED 18:45 → J4W 05-08 22:34
PROVIDERS: ADMIT Family Medicine; ATTEND Family Medicine
DX: R55 Syncope and collapse (principal); S09.8XXA Other specified injuries of head, initial encounter; W18.39XA Other fall on same level, initial encounter; Y93.89 Activity, other specified; Y92.030 Kitchen in apartment as the place of occurrence of the external cause; I25.10 Atherosclerotic heart disease of native coronary artery without angina pectoris; I11.0 Hypertensive heart disease with heart failure; I50.9 Heart failure, unspecified; J44.9 Chronic obstructive pulmonary disease, unspecified; E78.5 Hyperlipidemia, unspecified; E11.9 Type 2 diabetes mellitus without complications; J45.909 Unspecified asthma, uncomplicated; E53.8 Deficiency of other specified B group vitamins; Z91.013 Allergy to seafood
CPT/HCPCS: 36415; 70450-TC; 70553-TC; 71045-TC-FY; 80053; 80061; 81003; 82550; 82553; 82607; 82962; 83721; 83735; 84443; 84484; 85025; 85027; 93005; 93010; 93306-TC; 93880-TC; 95816; 97116-GP; 97161-GP; 99285-25; G0378

== ENCOUNTER 2019-01-02 16:27 | Inpatient (IN) | payer BC | END 2019-01-05 13:05 | disposition home or self-care (01) | LOC: JERBED 01-03 00:28 → JER 16:27 → J7W 01-03 03:51 ==

== ENCOUNTER 2021-04-14 12:23 | Emergency (ER) | payer BC ==
[2021-04-14 13:03] VITALS: BP 161/77; PULSE 97; TEMP 98.1; BMI 32.3
[2021-04-14] MEDS ORDERED: ACETAMINOPHEN 1000 MG/100 ML VIAL IVPB ONE (13:42)
[2021-04-14] MEDS ORDERED: SODIUM CHLORIDE 1,000 ML IV STA (13:42)
[2021-04-14] MEDS ORDERED: ONDANSETRON 4 MG/2 ML VIAL IVPUSH ONE (13:42)
[2021-04-14 14:25] LABS: HEMATOCRIT 40.3 % (32.4-45.2); LYMPH % 38.4 % (8-40); MCH 27.1 pg (25.7-33.7); MCHC 32.3 g/dl (32.0-36.0); MEAN CELL VOLUME 83.9 fl (80-96); MEAN PLT VOLUME 7.4 fl (7.5-11.1); MONO % 7.8 % (3.8-10.2); NEUT % 49.8 % (42.8-82.8); PLATELET COUNT 381 10^3/uL (134-434); RDW 13.7 % (11.6-15.6); WHITE BLOOD COUNT 6.2 K/mm3 (4.0-10.0)
[2021-04-14] MEDS ORDERED: ONDANSETRON 4 MG/2 ML VIAL ONE (14:33)
[2021-04-14] MEDS ORDERED: ACETAMINOPHEN INJECTION 100 ML IVPB ONE (14:33)
[2021-04-14 14:39] LABS: PH,URINE 6.5 (5.0-8.0); URINE APPEARANCE CLEAR; URINE BILIRUBIN NEGATIVE (NEGATIVE); URINE COLOR YELLOW; URINE GLUCOSE (UA) NEGATIVE (NEGATIVE); URINE KETONE NEGATIVE (NEGATIVE); URINE LEUK ESTERASE NEGATIVE (NEGATIVE); URINE NITRITE NEGATIVE (NEGATIVE); URINE PROTEIN NEGATIVE (NEGATIVE)
[2021-04-14 15:00] LABS: CHLORIDE 108 mmol/L (98-107); SODIUM 141 mmol/L (136-145)
[2021-04-14 15:03] LABS: ALBUMIN 4.1 g/dl (3.4-5.0); ANION GAP 5 MMOL/L (8-16); BLOOD UREA NITROGEN 17.8 mg/dL (7-18); CALCIUM 10.3 mg/dL (8.5-10.1); CO2 28 mmol/L (21-32)
[2021-04-14 15:04] LABS: GLUCOSE,RANDOM 81 mg/dL (74-106); LIPASE 87 U/L (73-393)
[2021-04-14 15:06] LABS: CREATININE 1.3 mg/dL (0.55-1.3); SGOT/AST 18 U/L (15-37); SGPT/ALT 25 U/L (13-61)
[2021-04-14 15:08] LABS: BILIRUBIN,TOTAL 0.7 mg/dL (0.2-1); TOT PROT 7.3 g/dl (6.4-8.2)
[2021-04-14 15:09] LABS: ALK PHOS 68 U/L (45-117)
[2021-04-14] MEDS ORDERED: oxyCODONE HCL 5 MG TABLET PO ONE (18:51)
[2021-04-14] MEDS ORDERED: oxyCODONE HCL 5 MG TABLET ONE (19:15)
== END 2021-04-14 19:59 | disposition home or self-care (01) ==
LOC: JER 12:23
PROC: 3E0333Z Introduction of Anti-inflammatory into Peripheral Vein, Percutaneous Approach (ICD-10-PCS; principal; 2021-04-14)
PROC: 3E0337Z Introduction of Electrolytic and Water Balance Substance into Peripheral Vein, Percutaneous Approach (ICD-10-PCS; 2021-04-14)
DX: R10.32 Left lower quadrant pain (principal)
CPT/HCPCS: 36415; 74176-TC; 80053; 81003; 82550; 83690; 84484; 85025; 87086; 93005; 93010; 99285-25; C9803; J0131; U0003; U0005

== ENCOUNTER 2021-05-09 07:32 | Inpatient (IN) | payer BC ==
[2021-05-09] MEDS ORDERED: ACETAMINOPHEN 1000 MG/100 ML VIAL IVPB ONE ×2 (08:44→16:58)
[2021-05-09] MEDS ORDERED: SODIUM CHLORIDE 0.9% 500 ML INFUS.BAG IV ONE (08:44)
[2021-05-09] MEDS ORDERED: LIDOCAINE 5% TOPICAL PATCH TP ONE (08:48)
[2021-05-09] MEDS ORDERED: ACETAMINOPHEN INJECTION 100 ML IVPB ONE ×2 (08:57→16:39)
[2021-05-09] MEDS ORDERED: LIDOCAINE 5% TOPICAL PATCH ONE (08:58)
[2021-05-09 09:28] LABS: BASO % 1.1 % (0-2.0); EOS % 0.8 % (0-4.5); HEMATOCRIT 38.2 % (32.4-45.2); HEMOGLOBIN 12.4 GM/dL (10.7-15.3); MCH 27.4 pg (25.7-33.7); MCHC 32.5 g/dl (32.0-36.0); MEAN CELL VOLUME 84.2 fl (80-96); MEAN PLT VOLUME 7.5 fl (7.5-11.1); MONO % 6.2 % (3.8-10.2); NEUT % 65.9 % (42.8-82.8); PLATELET COUNT 320 10^3/uL (134-434); RBC 4.53 M/mm3 (3.60-5.2); RDW 13.9 % (11.6-15.6); WHITE BLOOD COUNT 6.1 K/mm3 (4.0-10.0)
[2021-05-09 09:58] LABS: CALCIUM 9.9 mg/dL (8.5-10.1)
[2021-05-09 10:00] LABS: ALBUMIN 3.9 g/dl (3.4-5.0); BLOOD UREA NITROGEN 13.1 mg/dL (7-18)
[2021-05-09 10:03] LABS: CREATININE 1.1 mg/dL (0.55-1.3)
[2021-05-09 10:04] LABS: TOT PROT 6.9 g/dl (6.4-8.2)
[2021-05-09 10:05] LABS: BILIRUBIN,TOTAL 0.6 mg/dL (0.2-1)
[2021-05-09 11:39] LABS: URINE APPEARANCE CLEAR; URINE BILIRUBIN NEGATIVE (NEGATIVE); URINE COLOR YELLOW; URINE GLUCOSE (UA) NEGATIVE (NEGATIVE); URINE KETONE TRACE (NEGATIVE); URINE LEUK ESTERASE NEGATIVE (NEGATIVE); URINE NITRITE NEGATIVE (NEGATIVE); URINE PROTEIN NEGATIVE (NEGATIVE)
[2021-05-09] MEDS ORDERED: KETOROLAC TROMETHAMINE 15 MG/ML VIAL IVPUSH ONE (13:37)
[2021-05-09] MEDS ORDERED: KETOROLAC TROMETHAMINE 30 MG/1 ML VIAL ONE (14:12)
[2021-05-09] MEDS ORDERED: LIDOCAINE PATCH REMOVAL MC ONE (22:00)
[2021-05-09] MEDS ORDERED: MECLIZINE HCL 25 MG TABLET (FP) PO PRN (22:09)
[2021-05-09] MEDS: LIDOCAINE PATCH REMOVAL MC SCH (22:37)
[2021-05-09] MEDS: ACETAMINOPHEN 1000 MG/100 ML VIAL IVPB PRN (23:49)
[2021-05-10 02:30] VITALS: BMI 31.7
[2021-05-10] MEDS: ACETAMINOPHEN 1000 MG/100 ML VIAL IVPB PRN ×2 (07:44→16:26)
[2021-05-10] MEDS ORDERED: PT OWN MED DRAWER 7, Y5N ONE ×2 (09:57→13:31)
[2021-05-10] MEDS: LIDOCAINE 5% TOPICAL PATCH TP SCH (10:05)
[2021-05-10] MEDS: ENOXAPARIN NA (PORCINE) 40 MG/0.4 ML DISP.SYRIN SQ SCH (10:07)
[2021-05-10] MEDS: PANTOPRAZOLE 40 MG TABLET PO SCH (10:07)
[2021-05-10 10:15] LABS: BASO % 0.6 % (0-2.0); EOS % 2.4 % (0-4.5); HEMATOCRIT 38.6 % (32.4-45.2); HEMOGLOBIN 12.4 GM/dL (10.7-15.3); LYMPH % 29.3 % (8-40); MCH 27.2 pg (25.7-33.7); MCHC 32.2 g/dl (32.0-36.0); MEAN CELL VOLUME 84.3 fl (80-96); MEAN PLT VOLUME 7.9 fl (7.5-11.1); NEUT % 62.7 % (42.8-82.8); PLATELET COUNT 316 10^3/uL (134-434); RBC 4.57 M/mm3 (3.60-5.2); RDW 13.6 % (11.6-15.6)
[2021-05-10 10:38] LABS: ALBUMIN 3.6 g/dl (3.4-5.0); BLOOD UREA NITROGEN 17.5 mg/dL (7-18); CALCIUM 9.8 mg/dL (8.5-10.1)
[2021-05-10 10:42] LABS: CREATININE 1.1 mg/dL (0.55-1.3); TOT PROT 6.7 g/dl (6.4-8.2)
[2021-05-10] MEDS: DULoxetine HCL 30 MG CAPSULE.DR PO SCH (13:32)
[2021-05-10] MEDS: LIDOCAINE PATCH REMOVAL MC SCH (21:05)
[2021-05-11] MEDS: ACETAMINOPHEN 1000 MG/100 ML VIAL IVPB PRN (01:36)
[2021-05-11] MEDS ORDERED: traMADol HCL 50 MG TABLET PO PRN (09:19)
[2021-05-11] MEDS ORDERED: amLODIPine BESYLATE 2.5 MG TABLET (FP) PO SCH (10:00)
[2021-05-11] MEDS ORDERED: PT OWN MED DRAWER 7, Y5N ONE (10:06)
[2021-05-11] MEDS: ENOXAPARIN NA (PORCINE) 40 MG/0.4 ML DISP.SYRIN SQ SCH (10:14)
[2021-05-11] MEDS: PANTOPRAZOLE 40 MG TABLET PO SCH (10:14)
[2021-05-11] MEDS: DULoxetine HCL 30 MG CAPSULE.DR PO SCH (10:15)
[2021-05-11] MEDS: LIDOCAINE 5% TOPICAL PATCH TP SCH (10:15)
[2021-05-11] MEDS: traMADol HCL 50 MG TABLET PO PRN (16:02)
[2021-05-11] MEDS ORDERED: ONDANSETRON 4 MG/2 ML VIAL IVPUSH PRN (18:39)
[2021-05-11] MEDS: LIDOCAINE PATCH REMOVAL MC SCH (21:29)
[2021-05-12] MEDS: traMADol HCL 50 MG TABLET PO PRN ×3 (00:20→17:52)
[2021-05-12] MEDS ORDERED: ACETAMINOPHEN 1000 MG/100 ML VIAL IVPB ONE (04:09)
[2021-05-12] MEDS: LIDOCAINE 5% TOPICAL PATCH TP SCH (09:38)
[2021-05-12] MEDS: ENOXAPARIN NA (PORCINE) 40 MG/0.4 ML DISP.SYRIN SQ SCH (09:39)
[2021-05-12] MEDS: amLODIPine BESYLATE 5 MG TABLET (FP) PO SCH (09:39)
[2021-05-12] MEDS: PANTOPRAZOLE 40 MG TABLET PO SCH (09:39)
[2021-05-12] MEDS ORDERED: CYCLOBENZAPRINE HCL 5 MG TABLET PO SCH (12:00)
[2021-05-12 13:26] LABS: BASO % 0.6 % (0-2.0); EOS % 3.3 % (0-4.5); HEMATOCRIT 37.8 % (32.4-45.2); HEMOGLOBIN 12.3 GM/dL (10.7-15.3); LYMPH % 34.6 % (8-40); MCH 26.9 pg (25.7-33.7); MCHC 32.5 g/dl (32.0-36.0); MEAN CELL VOLUME 82.8 fl (80-96); MEAN PLT VOLUME 7.5 fl (7.5-11.1); MONO % 7.8 % (3.8-10.2); NEUT % 53.7 % (42.8-82.8); PLATELET COUNT 314 10^3/uL (134-434); RBC 4.57 M/mm3 (3.60-5.2); RDW 13.3 % (11.6-15.6); WHITE BLOOD COUNT 5.6 K/mm3 (4.0-10.0)
[2021-05-12] MEDS: LIDOCAINE PATCH REMOVAL MC SCH (21:47)
[2021-05-13] MEDS: traMADol HCL 50 MG TABLET PO PRN ×3 (01:29→14:44)
[2021-05-13 10:11] LABS: CALCIUM 9.4 mg/dL (8.5-10.1)
[2021-05-13 10:12] LABS: BLOOD UREA NITROGEN 13.2 mg/dL (7-18)
[2021-05-13] MEDS: LIDOCAINE 5% TOPICAL PATCH TP SCH (10:48)
[2021-05-13] MEDS: amLODIPine BESYLATE 5 MG TABLET (FP) PO SCH (10:48)
[2021-05-13] MEDS: PANTOPRAZOLE 40 MG TABLET PO SCH (10:48)
[2021-05-13] MEDS: ENOXAPARIN NA (PORCINE) 40 MG/0.4 ML DISP.SYRIN SQ SCH (10:48)
[2021-05-13] MEDS: GABAPENTIN 100 MG CAPSULE PO SCH ×2 (10:48→21:01)
[2021-05-13] MEDS: CYCLOBENZAPRINE HCL 5 MG TABLET PO PRN (10:52)
[2021-05-13] MEDS: LIDOCAINE PATCH REMOVAL MC SCH (21:46)
[2021-05-13] MEDS: MAGNESIUM HYDROX 2400MG/30ML ORAL SUSPENSION 30 ML CUP PO PRN (23:33)
[2021-05-14] MEDS: traMADol HCL 50 MG TABLET PO PRN ×2 (06:52→16:51)
[2021-05-14] MEDS: amLODIPine BESYLATE 5 MG TABLET (FP) PO SCH (10:44)
[2021-05-14] MEDS: PANTOPRAZOLE 40 MG TABLET PO SCH (10:44)
[2021-05-14] MEDS: ENOXAPARIN NA (PORCINE) 40 MG/0.4 ML DISP.SYRIN SQ SCH (10:44)
[2021-05-14] MEDS: LIDOCAINE 5% TOPICAL PATCH TP SCH (10:45)
[2021-05-14] MEDS: POLYETHYLENE GLYCOL (HEALTHYLAX) 3350 17 GM PACKET PO SCH (13:01)
[2021-05-14] MEDS: MAGNESIUM HYDROX 2400MG/30ML ORAL SUSPENSION 30 ML CUP PO PRN (21:36)
[2021-05-14] MEDS: GABAPENTIN 100 MG CAPSULE PO SCH (21:36)
[2021-05-14] MEDS: LIDOCAINE PATCH REMOVAL MC SCH (21:36)
[2021-05-15] MEDS: traMADol HCL 50 MG TABLET PO PRN ×3 (02:28→21:04)
[2021-05-15] MEDS: amLODIPine BESYLATE 5 MG TABLET (FP) PO SCH (09:08)
[2021-05-15] MEDS: POLYETHYLENE GLYCOL (HEALTHYLAX) 3350 17 GM PACKET PO SCH ×2 (09:09→21:03)
[2021-05-15] MEDS: PANTOPRAZOLE 40 MG TABLET PO SCH (09:09)
[2021-05-15] MEDS: ENOXAPARIN NA (PORCINE) 40 MG/0.4 ML DISP.SYRIN SQ SCH (09:09)
[2021-05-15] MEDS: LIDOCAINE 5% TOPICAL PATCH TP SCH ×2 (09:09→14:37)
[2021-05-15] MEDS ORDERED: GABAPENTIN 100 MG CAPSULE PO SCH (10:29)
[2021-05-15] MEDS ORDERED: MAGNESIUM CITRATE 300 ML BOTTLE PO ONE (14:36)
[2021-05-15] MEDS ORDERED: SODIUM PHOSPHATE/NA BIPHOS 133 ML ENEMA PR ONE (14:37)
[2021-05-15] MEDS: ALBUTEROL SO4 HFA INHALER IH PRN (14:55)
[2021-05-15] MEDS ORDERED: PT OWN MED DRAWER 7, Y5N ONE ×2 (15:41→17:48)
[2021-05-15] MEDS: LIPASE/PROTEASE/AMYLASE 36,000 UNIT CAPSULE PO SCH (17:50)
[2021-05-15] MEDS: metroNIDAZOLE 250 MG TABLET PO SCH (21:03)
[2021-05-15] MEDS: CYCLOBENZAPRINE HCL 5 MG TABLET PO PRN (21:04)
[2021-05-15] MEDS: LIDOCAINE PATCH REMOVAL MC SCH (22:19)
[2021-05-16] MEDS: POLYETHYLENE GLYCOL (HEALTHYLAX) 3350 17 GM PACKET PO SCH ×2 (04:01→10:45)
[2021-05-16] MEDS ORDERED: ONDANSETRON *ODT* 4 MG TABLET SL PRN (05:05)
[2021-05-16] MEDS: metroNIDAZOLE 250 MG TABLET PO SCH ×3 (06:37→14:09)
[2021-05-16] MEDS ORDERED: PT OWN MED DRAWER 7, Y5N ONE ×2 (07:53→12:22)
[2021-05-16] MEDS: LIPASE/PROTEASE/AMYLASE 36,000 UNIT CAPSULE PO SCH ×2 (07:59→12:23)
[2021-05-16] MEDS: ALBUTEROL SO4 HFA INHALER IH PRN (09:09)
[2021-05-16] MEDS: amLODIPine BESYLATE 5 MG TABLET (FP) PO SCH (10:41)
[2021-05-16] MEDS: LIDOCAINE 5% TOPICAL PATCH TP SCH (10:42)
[2021-05-16] MEDS: ENOXAPARIN NA (PORCINE) 40 MG/0.4 ML DISP.SYRIN SQ SCH (10:42)
[2021-05-16] MEDS: PANTOPRAZOLE 40 MG TABLET PO SCH (10:45)
[2021-05-16 11:12] LABS: BASO % 0.7 % (0-2.0); EOS % 0.5 % (0-4.5); HEMATOCRIT 39.9 % (32.4-45.2); HEMOGLOBIN 13.1 GM/dL (10.7-15.3); LYMPH % 26.3 % (8-40); MCH 27.3 pg (25.7-33.7); MCHC 32.8 g/dl (32.0-36.0); MEAN CELL VOLUME 83.1 fl (80-96); MEAN PLT VOLUME 7.5 fl (7.5-11.1); MONO % 7.2 % (3.8-10.2); NEUT % 65.3 % (42.8-82.8); PLATELET COUNT 345 10^3/uL (134-434); RDW 13.7 % (11.6-15.6); WHITE BLOOD COUNT 6.9 K/mm3 (4.0-10.0)
[2021-05-16 11:36] LABS: ALBUMIN 3.7 g/dl (3.4-5.0); BLOOD UREA NITROGEN 15.3 mg/dL (7-18)
[2021-05-16 11:40] LABS: BILIRUBIN,TOTAL 0.6 mg/dL (0.2-1)
[2021-05-16 11:41] LABS: TOT PROT 6.9 g/dl (6.4-8.2)
[2021-05-16] MEDS: CYCLOBENZAPRINE HCL 5 MG TABLET PO PRN (12:25)
[2021-05-16 14:56] VITALS: BP 135/87; PULSE 94; TEMP 98.9
== END 2021-05-16 16:53 | DRG 552 ==
LOC: JER 07:32 → JERBED 14:08 → J5S 17:57
PROVIDERS: ADMIT Family Medicine; ATTEND Family Medicine
DX: M48.061 Spinal stenosis, lumbar region without neurogenic claudication (principal); M48.07 Spinal stenosis, lumbosacral region; I10 Essential (primary) hypertension; I25.10 Atherosclerotic heart disease of native coronary artery without angina pectoris; E78.5 Hyperlipidemia, unspecified; R11.0 Nausea; J44.9 Chronic obstructive pulmonary disease, unspecified; K59.00 Constipation, unspecified
CPT/HCPCS: 36415; 71275-TC; 72132-TC; 72148-TC; 73562-TC-LT-FY; 74018-TC-FY; 74174-TC; 76856-TC; 80048; 80053; 81003; 83690; 83735; 85025; 85651; 86140; 86618; 87086; 93005; 93010; 97116-GP; 97161-GP; 99285-25; C9803; J0131; Q0162; Q9967; U0003; U0005

== ENCOUNTER 2022-10-20 10:46 | Emergency (ER) | payer BC, OTHER ==
[2022-10-20 10:50] VITALS: RESP 16; BMI 31.9
[2022-10-20] MEDS ORDERED: DEXAMETHASONE SOD PHOSPHATE 10 MG/1 ML VIAL IVPUSH ONE (11:14)
[2022-10-20] MEDS ORDERED: ACETAMINOPHEN 500 MG TABLET (FP) PO ONE (11:14)
[2022-10-20] MEDS ORDERED: ALBUTEROL SO4 2.5/IPRATROPIUM 0.5 INH SOL 3 ML VIAL.NEB. NEB ONE ×2 (11:20→12:39)
[2022-10-20] MEDS ORDERED: DEXAMETHASONE SOD PHOSPHATE 10 MG/1 ML VIAL ONE (11:21)
[2022-10-20] MEDS ORDERED: ACETAMINOPHEN 325 MG TABLET (FP) ONE (11:21)
[2022-10-20] MEDS: ALBUTEROL SO4 2.5/IPRATROPIUM 0.5 INH SOL 3 ML VIAL.NEB. NEB SCH ×2 (12:04→12:41)
[2022-10-20 12:31] LABS: BASO % 0.6 % (0-2.0); EOS % 1.8 % (0-4.5); HEMATOCRIT 36.3 % (32.4-45.2); HEMOGLOBIN 11.9 GM/dL (10.7-15.3); LYMPH % 36.1 % (8-40); MCHC 32.6 g/dl (32.0-36.0); MEAN CELL VOLUME 82.8 fl (80-96); MEAN PLT VOLUME 7.5 fl (7.5-11.1); MONO % 8.7 % (3.8-10.2); NEUT % 52.8 % (42.8-82.8); PLATELET COUNT 326 10^3/uL (134-434); RBC 4.39 M/mm3 (3.60-5.2); RDW 13.8 % (11.6-15.6); WHITE BLOOD COUNT 7.8 K/mm3 (4.0-10.0)
[2022-10-20 12:50] LABS: POTASSIUM 4.1 mmol/L (3.5-5.1)
[2022-10-20 12:52] LABS: BLOOD UREA NITROGEN 15.6 mg/dL (7-18); CALCIUM 9.8 mg/dL (8.5-10.1)
[2022-10-20 12:57] LABS: BILIRUBIN,TOTAL 0.5 mg/dL (0.2-1); TOT PROT 6.7 g/dl (6.4-8.2)
[2022-10-20 13:30] VITALS: BP 178/87; PULSE 105; TEMP 98.8
== END 2022-10-20 13:52 | disposition home or self-care (01) ==
LOC: JER 10:46
PROC: 3E033GC Introduction of Other Therapeutic Substance into Peripheral Vein, Percutaneous Approach (ICD-10-PCS; principal; 2022-10-20)
PROC: 3E0F7GC Introduction of Other Therapeutic Substance into Respiratory Tract, Via Natural or Artificial Opening (ICD-10-PCS; 2022-10-20)
DX: R07.9 Chest pain, unspecified (principal); R05.9 Cough, unspecified; R06.02 Shortness of breath; J44.1 Chronic obstructive pulmonary disease with (acute) exacerbation; R22.43 Localized swelling, mass and lump, lower limb, bilateral; Z20.822 Contact with and (suspected) exposure to COVID-19
CPT/HCPCS: 0241U-QW; 36415; 71045-TC-FY; 80053; 83735; 83880; 84484; 85025; 93005; 93010; 94640; 96374; 99285-25; J1100

== ENCOUNTER 2024-03-09 03:49 | Day surgery (SDC) | payer BC, OTHER ==
[2024-03-07 15:56] VITALS: BMI 30.7
[2024-03-09] MEDS: DEXAMETHASONE SOD PHOSPHATE 10 MG/1 ML VIAL IVPUSH ONE
[2024-03-09] MEDS: IOHEXOL 180 MG/1 ML ML IJ ONE
[2024-03-09] MEDS: LIDOCAINE HCL 1% PRESERVATIVE FREE - 30ML VIAL IJ ONE
[2024-03-09 08:09] VITALS: PULSE 89
[2024-03-09] MEDS ORDERED: ACETAMINOPHEN 500 MG TABLET (FP) PO PRN (09:29)
[2024-03-09] MEDS ORDERED: DEXAMETHASONE SOD PHOSPHATE 10 MG/1 ML VIAL ONE (10:32)
[2024-03-09 11:29] VITALS: BP 132/81; RESP 16; TEMP 98.2
== END 2024-03-09 12:00 | disposition home or self-care (01) ==
LOC: JASU-SURG 03:49
PROVIDERS: ATTEND Pain Medicine Pain Medicine
PROC: 3E0R3BZ Introduction of Anesthetic Agent into Spinal Canal, Percutaneous Approach (ICD-10-PCS; 2024-03-09)
PROC: 3E0R33Z Introduction of Anti-inflammatory into Spinal Canal, Percutaneous Approach (ICD-10-PCS; principal; 2024-03-09 10:00)
DX: M54.16 Radiculopathy, lumbar region (principal)
CPT/HCPCS: 76000-TC-FY; J1100

== ENCOUNTER 2024-08-10 06:47 | Day surgery (SDC) | payer BC, OTHER ==
[2024-08-10] MEDS ORDERED: ACETAMINOPHEN 500 MG TABLET (FP) PO PRN (09:24)
[2024-08-10 12:22] VITALS: RESP 16
[2024-08-10 14:51] VITALS: BP 154/80; PULSE 86; TEMP 98
== END 2024-08-10 15:27 | disposition home or self-care (01) ==
LOC: JASU-SURG 06:47
PROVIDERS: ATTEND Pain Medicine Pain Medicine
PROC: 3E0R3BZ Introduction of Anesthetic Agent into Spinal Canal, Percutaneous Approach (ICD-10-PCS; 2024-08-10)
PROC: 3E0R33Z Introduction of Anti-inflammatory into Spinal Canal, Percutaneous Approach (ICD-10-PCS; principal; 2024-08-10 14:33)
DX: M54.16 Radiculopathy, lumbar region (principal)
CPT/HCPCS: 76000-TC-FY